=== PATIENT | male | born 1935 | race Caucasian/White ===

== ENCOUNTER 2021-06-15 08:43 | Day surgery (SDC) | payer MEDICARE ==
[2021-06-13 10:33] LABS: BASOPHILS # (AUTO) 0.1 X10'3 (0-0.2); BASOPHILS % (AUTO) 1.2 % (0-1); EOSINOPHILS # (AUTO) 0.2 X10'3 (0-0.9); EOSINOPHILS % (AUTO) 2.9 % (0-6); LYMPHOCYTES # (AUTO) 1.1 X10'3 (1.1-4.8); LYMPHOCYTES % (AUTO) 15.9 % (21-51); MEAN CORPUSCULAR HEMOGLOBIN 30.4 PG (27.0-31.0); MEAN CORPUSCULAR HGB CONC 34.5 g/dL (33.0-36.5); MEAN CORPUSCULAR VOLUME 88.1 FL (78-98); MEAN PLATELET VOLUME 7.2 FL (7.4-10.4); MONOCYTES # (AUTO) 0.8 X10'3 (0-0.9); MONOCYTES % (AUTO) 11.5 % (2-12); NEUTROPHILS # (AUTO) 4.5 X10'3 (1.8-7.7); NEUTROPHILS % (AUTO) 68.5 % (42-75); PRE OP HEMATOCRIT 41.9 % (42.0-52.0); PRE OP HEMOGLOBIN 14.4 g/dL (14.0-17.9); PRE OP PLATELET COUNT 245 X10'3 (140-440); RED BLOOD COUNT 4.75 X10'6 (4.70-6.10); RED CELL DISTRIBUTION WIDTH 14.4 % (11.5-14.5)
[2021-06-13 10:38] LABS: ALBUMIN 3.7 G/DL (3.4-5.0); ALBUMIN/GLOBULIN RATIO 1.1 (1.1-1.5); ALKALINE PHOSPHATASE 88 IU/L (46-116); BLOOD UREA NITROGEN 12 MG/DL (7-18); BUN/CREATININE RATIO 13.5 (5.4-32.0); CALCIUM 8.5 MG/DL (8.5-10.1); CHLORIDE 106 MMOL/L (99-107); CREATININE 0.89 MG/DL (0.60-1.10); PRE OP ALT 29 U/L (30-65); PRE OP ANION GAP 6 (8-16); PRE OP AST 18 U/L (10-37); PRE OP BILIRUB, TOTAL 0.4 MG/DL (0.0-1.0); PRE OP GLUCOSE 73 MG/DL (70-104); PRE OP POTASSIUM 4.3 MMOL/L (3.4-5.1); PRE OP SODIUM 141 MMOL/L (135-145); TOTAL CARBON DIOXIDE 29.4 MMOL/L (24-32); TOTAL PROTEIN 7.2 G/DL (6.4-8.2); eGFR 82 ML/MIN
[~2021-06-15] VITALS: Ht 172.7 cm; Wt 74.3 kg
[2021-06-15] VITALS (9 sets, daily range): BP systolic 134–155; BP diastolic 70–84
[~2021-06-15 08:43] MED LIST: NO HOME MEDS; cefazolin/dext.iso 2gm/100ml IV ONE; famotidine 20mg tablet PO ONE; ringers solution, lacted 1,000 ML IV SCH
[2021-06-15] MEDS ORDERED: meperidine/PF 25mg/ml syringe IV PRN ×3 (10:35)
[2021-06-15] MEDS ORDERED: ondansetron/PF 4mg/2ml inj IV PRN (10:35)
[2021-06-15] MEDS ORDERED: ringers solution, lacted 1,000 ML IV SCH (10:35)
[2021-06-15] MEDS ORDERED: morphine 2 MG/ML inj. syringe IV PRN (10:35)
[2021-06-15] MEDS ORDERED: morphine 4 MG/ML inj SYRINge IV PRN (10:35)
[2021-06-15] MEDS ORDERED: proCHLORperazine 10 MG/2 ml inj IV PRN (10:35)
[2021-06-15] MEDS ORDERED: LIDOcaine 1% 30ml preserv. free vial ONE (12:00)
[2021-06-15] MEDS ORDERED: BUPIVAcaine/PF 2.5mg/ml (0.25%) 10ml vial ONE (12:00)
[2021-06-15] MEDS ORDERED: fentaNYL/PF 50MCG/1 ML 2ML syringe ONE (12:17)
[2021-06-15] MEDS ORDERED: rocuronium 10mg/ml inj IV ONE (12:18)
[2021-06-15] MEDS ORDERED: midazolam 1 mg/ML 2ml injection ONE (12:18)
[2021-06-15] MEDS ORDERED: propofol inj 20 ML IV ONE (12:18)
[2021-06-15] MEDS ORDERED: dexamethasone sod phosphate 4mg/ml inj. ONE (12:35)
[2021-06-15] MEDS ORDERED: ondansetron/PF 4mg/2ml inj ONE (13:13)
[2021-06-15] MEDS ORDERED: neostigmine methylsulfate 1 MG/ML 10ml vial ONE (13:21)
[2021-06-15] MEDS ORDERED: glycopyrrolate 0.2mg/ml inj ONE (13:21)
[2021-06-15] MEDS ORDERED: HYDROcodone/acetaminophen 5mg/325mg tablet PO PRN (13:40)
--- NOTE | 2021-06-15 13:41 | NUR ---
Received from OR via , accompanied by Anesthesiologist DR HAMILTON and report given by Anesthesiolgist. AWAKENS TO VOICE. VITALS STABLE. DRESSINGS DI. JUAN PAIN. ABD SOFT.
--- NOTE | 2021-06-15 15:31 | NUR ---
AWAKE AND ORIENTED. VITALS STABLE. DRESSINGS DI. JUAN PAIN. HOME WITH HIS DAUGHTER AT THIS TIME.
== END 2021-06-15 15:31 | disposition home or self-care (01) ==
LOC: PAS 08:43
PROVIDERS: ATTEND Surgery
DX: K40.90 Unilateral inguinal hernia, without obstruction or gangrene, not specified as recurrent (principal); K42.0 Umbilical hernia with obstruction, without gangrene; J45.909 Unspecified asthma, uncomplicated; Z79.899 Other long term (current) drug therapy; Z20.822 Contact with and (suspected) exposure to COVID-19; Z91.09 Other allergy status, other than to drugs and biological substances; Z98.890 Other specified postprocedural states; Z85.828 Personal history of other malignant neoplasm of skin; Z82.49 Family history of ischemic heart disease and other diseases of the circulatory system
CPT/HCPCS: 36415; 49587; 49650; 80053; 82948; 85025; 87635; 93005; C1781; C9803; J1100; J2001; J2250; J2405; J2704; J2710; J3010; J3490; J7120; Z7506; Z7508; Z7512; A4215; A4618; A7000